=== PATIENT | female | born 1995 | race Caucasian/White ===

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

== ENCOUNTER 2021-04-06 14:58 | Outpatient (CLI) | payer OTHER | END 2021-04-06 16:32 | disposition home or self-care (01) | LOC: GENOP 14:58 | DX: O46.93 Antepartum hemorrhage, unspecified, third trimester (principal); Z3A.38 38 weeks gestation of pregnancy | CPT/HCPCS: 59025; 81001 ==

== ENCOUNTER 2021-04-16 16:24 | Inpatient (IN) | payer OTHER ==
[~2021-04-16] VITALS: Ht 170.2 cm; Wt 78.0 kg
[2021-04-16 17:18] LABS: HEMOGLOBIN 11.8 gm/dl (12.3-15.3); RED BLOOD COUNT 4.21 M/UL (4.00-5.10); WHITE BLOOD COUNT 10.4 K/UL (4.5-11.0)
[2021-04-17] MEDS ORDERED: IBUPROFEN600 MG PO (19:58)
[2021-04-17] MEDS ORDERED: DOCUSATE SODIU100 MG PO (19:58)
[2021-04-17] MEDS ORDERED: HYDROCODON-ACE1 EAC4 PO (19:58)
[2021-04-18 07:26] LABS: HEMOGLOBIN 10.6 gm/dl (12.3-15.3)
== END 2021-04-19 12:08 | disposition home or self-care (01) | DRG 788 ==
LOC: GENOP 16:24 → OB 16:32
PROVIDERS: Obstetrics & Gynecology; ADMIT Obstetrics & Gynecology
PROC: 10H07YZ Insertion of Other Device into Products of Conception, Via Natural or Artificial Opening (ICD-10-PCS; 2021-04-17)
PROC: 4A1H8CZ Monitoring of Products of Conception, Cardiac Rate, Via Natural or Artificial Opening Endoscopic (ICD-10-PCS; 2021-04-17)
PROC: 10907ZC Drainage of Amniotic Fluid, Therapeutic from Products of Conception, Via Natural or Artificial Opening (ICD-10-PCS; 2021-04-17)
PROC: 10D00Z1 Extraction of Products of Conception, Low, Open Approach (ICD-10-PCS; principal; 2021-04-17 20:16)
DX: O34.211 Maternal care for low transverse scar from previous cesarean delivery (principal); O62.1 Secondary uterine inertia; Z3A.40 40 weeks gestation of pregnancy; Z37.0 Single live birth
CPT/HCPCS: 36415; 81001; 82800; 85014; 85018; 85025; 90715; 94760; J0690; J1170; J2210; J2274; J2405; J2590; J3010; J7120; U0003